=== PATIENT | male | born 1950 | race Caucasian/White ===

== ENCOUNTER 2018-12-03 09:49 | Emergency (ER) | payer BC ==
[2018-12-03 10:20] VITALS: BP 147/64
--- NOTE | 2018-12-03 10:37 | EDM.PDOC ---
ED HPI GENERAL MEDICAL PROBLEM - General Chief Complaint: Abdominal Pain Stated Complaint: abdominal pain Time Seen by Provider: 12/03/18 10:20 Source of Information: Reports: Patient History Limitations: Reports: No Limitations - History of Present Illness INITIAL COMMENTS - FREE TEXT/NARRATIVE: Patient comes into the emergency department with complaint of abdominal pain. He also is complaining of feeling weak related to possible anemia. He states that he has had a history of anemia in the past he has not had his labs checked recently. He does have history of Crohn's as well. He states that his abdominal discomfort does feel like a Crohn's flareup possibly but also feels like it could be something else. He states that the discomfort is generalized lower across the abdomen. Describes as a dull sensation and hurts to touch. He states she's had normal bowel movements has noticed his stools have been darker. He states that the discomfort does feel better when he eats or when he is lying down. He has not taken any medications to help with the discomfort or pain. He denies any chest pain, shortness of breath, urinary concerns, swelling, or nausea and vomiting. Onset: Gradual Quality: Reports: Dull, Throbbing Severity: Mild Improves with: Reports: Eating Worsens with: Reports: None Associated Symptoms: Reports: No Other Symptoms Abdomen Pain Score (Numeric/FACES): 3 - Related Data Allergies Allergy/AdvReac Type Severity Reaction Status Date / Time cephalexin Allergy Headache Verified 12/03/18 10:15 hayfever Allergy Other Uncoded 12/03/18 10:15 Home Meds: Home Meds Albuterol/Ipratropium [Combivent] 1 puff INH Q4H PRN 04/07/14 [History] Aspirin [Halfprin] 81 mg PO DAILY 04/07/14 [History] Fluticasone Propionate [Flonase] 2 spray NS DAILY 04/07/14 [History] Ketorolac [Toradol] 10 mg PO Q6H PRN #40 tab 04/07/14 [Rx] Lansoprazole [Prevacid] 30 mg PO DAILY 04/07/14 [History] Valsartan [Diovan] 320 mg PO DAILY 04/07/14 [History] amLODIPine [Norvasc] 5 mg PO DAILY 04/07/14 [History] Fluticasone/Salmeterol [Advair 250-50 Diskus] 1 puff PO DAILY 07/27/16 [History] Iron Ps Cmplx/Vit B12/Fa [Polysaccharide Iron Forte] 2 each PO DAILY 07/27/16 [ History] Rosuvastatin [Crestor] 10 mg PO Q2D 07/27/16 [History] Tadalafil [Cialis] 20 mg PO DAILY PRN 07/27/16 [History] Past Medical History HEENT History: Reports: Allergic Rhinitis Cardiovascular History: Reports: High Cholesterol, Hypertension Respiratory History: Reports: COPD, Sleep Apnea Gastrointestinal History: Reports: GERD, Other (See Below) Other Gastrointestinal History: Chrohns Genitourinary History: Reports: None Musculoskeletal History: Reports: Osteoarthritis Other Musculoskeletal History: Right wrist tendonitis Neurological History: Reports: None Psychiatric History: Reports: None Endocrine/Metabolic History: Reports: None Hematologic History: Reports: Anemia Immunologic History: Reports: None Oncologic (Cancer) History: Reports: Basal Cell Carcinoma Dermatologic History: Reports: None - Past Surgical History Head Surgeries/Procedures: Reports: None GI Surgical History: Reports: Colonoscopy, EGD, Hernia, Inguinal Neurological Surgical History: Reports: None Musculoskeletal Surgical History: Reports: Carpal Tunnel, Shoulder Surgery Social & Family History - Tobacco Use Smoking Status *Q: Never Smoker ED ROS GENERAL - Review of Systems Review Of Systems: See Below Constitutional: Reports: Malaise, Fatigue HEENT: Reports: No Symptoms Respiratory: Reports: No Symptoms Cardiovascular: Reports: No Symptoms Endocrine: Reports: No Symptoms GI/Abdominal: Reports: Abdominal Pain, Anorexia, Decreased Appetite : Reports: No Symptoms Musculoskeletal: Reports: No Symptoms Skin: Reports: No Symptoms Neurological: Reports: No Symptoms Psychiatric: Reports: No Symptoms Hematologic/Lymphatic: Reports: Anemia Immunologic: Reports: No Symptoms ED EXAM, GENERAL - Physical Exam Exam: See Below Exam Limited By: No Limitations General Appearance: Alert, WD/WN, No Apparent Distress Head: Atraumatic, Normocephalic Neck: Normal Inspection, Supple, Non-Tender, Full Range of Motion Respiratory/Chest: No Respiratory Distress, Lungs Clear, Normal Breath Sounds, No Accessory Muscle Use, Chest Non-Tender Cardiovascular: Normal Peripheral Pulses, Regular Rate, Rhythm, No Edema, No Murmur GI/Abdominal: Tender, Abnormal Bowel Sounds. No: Guarding, Rigid, Hernia, Mass , Hepatomegaly Back Exam: Normal Inspection, Full Range of Motion Extremities: Normal Inspection, Normal Range of Motion, Normal Capillary Refill Neurological: Alert, Oriented Psychiatric: Normal Affect, Normal Mood Skin Exam: Warm, Dry, Intact, Normal Color Course - Vital Signs Last Recorded V/S: Last Vital Signs Temp 37.3 C 12/03/18 10:15 Pulse 61 12/03/18 10:15 Resp 16 12/03/18 10:15 BP 147/64 H 12/03/18 10:15 Pulse Ox 96 12/03/18 10:15 - Orders/Labs/Meds Orders: Active Orders 24 hr Category Date Time Status Peripheral IV Insertion Adult [OM.PC] Stat Oth 12/03/18 10:31 Ordered Labs: Laboratory Tests 12/03/18 12/03/18 12/03/18 Range/Units 10:40 10:40 10:50 WBC 4.5 (4.0-10.0) x10^3/uL RBC 3.73 L (4.5-6.0) x10^6/uL Hgb 9.0 L D (14.0-18.0) g/dL Hct 30.5 L (40.0-52.0) % MCV 81.8 (78.0-93.0) fL MCH 24.1 L (26.0-32.0) pg MCHC 29.5 L (32.0-36.0) g/dL RDW Coeff of Jaret (10.0-15.0) % Plt Count 261 (130-400) x10^3/uL Add Manual Diff Yes Neutrophils % (Manual) 64 (50-80) % Band Neutrophils % 2 (0-6) % Lymphocytes % (Manual) 20 L (25-50) % Monocytes % (Manual) 9 (2-11) % Eosinophils % (Manual) 5 H (0-4) % Vacuolated Monocytes Rare Platelet Estimate Adequate Giant Platelets Rare H Polychromasia Rare Hypochromasia 2+ moderate H Anisocytosis 4+ H Target Cells 1+ slight H Ovalocytes 2+ moderate H Acanthocytes (Spur) 2+ moderate H Schistocytes Rare Sodium 139 (136-145) mmol/L Potassium 4.4 (3.5-5.1) mmol/L Chloride 107 (98-107) mmol/L Carbon Dioxide 24 (21-32) mmol/L Anion Gap 12.4 (10-20) mmol/L BUN 15 (7-18) mg/dL Creatinine 0.9 (0.70-1.30) mg/dL Est Cr Clr Drug Dosing 68.52 mL/min Estimated GFR (MDRD) > 60 Glucose 101 (74-106) mg/dL Calcium 8.7 (8.5-10.1) mg/dL Corrected Calcium 9.18 (8.5-10.1) mg/dL Total Bilirubin 0.3 (0.2-1.0) mg/dL AST 22 (15-37) U/L ALT 27 (16-63) U/L Alkaline Phosphatase 56 (46-116) U/L Total Protein 6.3 L (6.4-8.2) g/dL Albumin 3.4 (3.4-5.0) g/dL Globulin 2.9 Albumin/Globulin Ratio 1.17 Stool Occult Blood Positive H (NEGATIVE) Meds: Medications Discontinued Medications Generic Name Dose Route Start Last Admin Trade Name Freq PRN Reason Stop Dose Admin Sodium Chloride 1,000 mls @ 1,000 mls/hr 12/03/18 10:31 12/03/18 10:44 Normal Saline IV 12/03/18 11:30 1,000 mls/hr ONETIME ONE Administration Sodium Chloride 10 ml 12/03/18 10:31 12/03/18 10:45 Saline Flush FLUSH 10 ml ASDIRECTED PRN Administration Keep Vein Open Departure - Departure Time of Disposition: 12:00 Disposition: Home, Self-Care 01 Condition: Good Clinical Impression: Chronic anemia Abdominal pain Qualifiers: Abdominal location: generalized Qualified Code(s): R10.84 - Generalized abdominal pain GI bleeding Qualifiers: GI bleed type/associated pathology: unspecified gastrointestinal hemorrhage type Qualified Code(s): K92.2 - Gastrointestinal hemorrhage, unspecified - Discharge Information *PRESCRIPTION DRUG MONITORING PROGRAM REVIEWED*: Not Applicable *COPY OF PRESCRIPTION DRUG MONITORING REPORT IN PATIENT BIRGIT: Not Applicable Instructions: Abdominal Pain, Adult, [id number], Acute Pain, Adult, Lower Gastrointestinal Bleeding Referrals: Heber Gonzalez MD [Primary Care Provider] - Forms: ED Department Discharge Additional Instructions: 1. rest 2. continue with your current medications regiment until evaluated from Gastrointestinal doctor 3. activity and diet as tolerated 4. Call with any questions or concerns - My Orders Last 24 Hours: My Active Orders 12/03/18 10:31 Peripheral IV Insertion Adult [OM.PC] Stat - Assessment/Plan Last 24 Hours: My Active Orders 12/03/18 10:31 Peripheral IV Insertion Adult [OM.PC] Stat Assessment:: 1. abdominal pain 2. Microcytic anemia 3. Chronic anemia 4. Chronic bleed Plan: 1. bedside stool occult completed 2. Labs completed in ER 3. CT completed in ER 4. IV started and fluids given 5. Results discussed with the patient and spouse. Records reviewed from [facility]. Pt does have an appointment on 12/12 with gastroenterology for further evaluation and studies. It is advisable for the patient to continue with his current medication regiment until evaluation from gastroenterology. 6. Education provided regarding worsening symptoms and follow up care 7. All questions and concerns addressed prior to discharge
[2018-12-03] MEDS: Sodium Chloride 0.9% 1,000 ML IV ONE (10:44)
[2018-12-03] MEDS: Sodium Chloride 0.9% 10 ML Syringe FLUSH PRN (10:45)
[2018-12-03 11:12] LABS: CHLORIDE,CL 107 mmol/L (98-107); SODIUM,NA 139 mmol/L (136-145)
[2018-12-03 11:20] LABS: ANION GAP 12.4 mmol/L (10-20)
--- NOTE | 2018-12-03 11:31 | CT ---
[id number] CT/CT Abdomen Pelvis WO IV EXAM: ABDOMEN AND PELVIS CT WITHOUT CONTRAST INDICATION: Abdominal pain. COMPARISON: None. 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 Mild prostatomegaly. Lobular fluid densities in the left renal hilum, favor parapelvic cysts over collecting system dilation. The largest cyst is about 31 x 51 mm. A subcentimeter hypodensity in the right lobe of the liver is too small to further characterize, but of doubtful clinical significance. The gallbladder, pancreas, spleen, adrenal glands, right kidney, small bowel, large bowel and appendix are normal in appearance. No adenopathy, free air or free fluid. Degenerative changes in the spine. Grade 1 degenerative L4-L5 spondylolisthesis. The osseous structures are otherwise unremarkable. IMPRESSION: 1. Small fat-containing left inguinal, left Spigelian and umbilical hernias. 2. No acute findings. Kevin Gomez MD 12/03/18 [id number] Thank you for allowing us to participate in the care of your patient.
== END 2018-12-03 11:55 | disposition home or self-care (01) ==
LOC: VM.ED 09:49
DX: K92.2 Gastrointestinal hemorrhage, unspecified (principal); D50.9 Iron deficiency anemia, unspecified; I10 Essential (primary) hypertension; J44.9 Chronic obstructive pulmonary disease, unspecified; Z88.1 Allergy status to other antibiotic agents; Z79.82 Long term (current) use of aspirin; Z79.899 Other long term (current) drug therapy
CPT/HCPCS: 74176; 80053; 85025; 96360; 99284; G0328; J7030

== ENCOUNTER 2024-01-05 08:49 | Emergency (ER) | payer BC ==
[2024-01-05 09:02] VITALS: BP 147/66; PULSE 55
[2024-01-05] MEDS ORDERED: Sodium Chloride 0.9% 10 ML Syringe FLUSH PRN (09:07)
[2024-01-05 09:20] LABS: BASOPHILS PERCENT AUTO 0.6 % (0.2-1.2); EOSINOPHILS ABSOLUTE AUTO 0.3 x10^3/uL (0.0-0.5); EOSINOPHILS PERCENT AUTO 5.1 % (0.0-4.0); HEMATOCRIT 40.7 % (40.0-52.0); HEMOGLOBIN 14.1 g/dL (14.0-18.0); LYMPHOCYTES ABSOLUTE AUTO 1.1 x10^3/uL (1.0-4.8); LYMPHOCYTES PERCENT AUTO 21.9 % (25.0-50.0); MEAN CORPUSCULAR HEMOGLOBIN 32.4 pg (26.0-32.0); MEAN CORPUSCULAR HGB CONC 34.6 g/dL (32.0-36.0); MEAN CORPUSCULAR VOLUME 93.6 fL (78.0-93.0); MONOCYTES ABSOLUTE AUTO 0.4 x10^3/uL (0.0-0.8); MONOCYTES PERCENT AUTO 8.6 % (2.0-11.0); NEUTROPHILS ABSOLUTE AUTO 3.3 x10^3/uL (1.8-7.7); NEUTROPHILS PERCENT AUTO 63.8 % (50.0-80.0); PLATELET COUNT,PLT 196 x10^3/uL (130-400); RED BLOOD CELL COUNT 4.35 x10^6/uL (4.5-6.0); WHITE BLOOD CELL COUNT,WBC 5.1 x10^3/uL (4.0-10.0)
[2024-01-05 09:36] LABS: PROTHROMBIN TIME 9.8 SEC (8.9-11.5)
[2024-01-05 09:43] LABS: A/G RATIO 1.08; ALANINE AMINOTRANSFERASE,ALT 22 U/L (16-63); ALBUMIN 3.9 g/dL (3.4-5.0); ALKALINE PHOSPHATASE 60 U/L (46-116); ANION GAP 14.4 mmol/L (5-15); ASPARTATE AMNIOTRANSFERASE,AST 20 U/L (15-37); BILIRUBIN TOTAL 0.6 mg/dL (0.2-1.0); BLOOD UREA NITROGEN,BUN 22 mg/dL (7-18); CALCIUM 8.9 mg/dL (8.5-10.1); CARBON DIOXIDE,CO2 26 mmol/L (21-32); CHLORIDE,CL 106 mmol/L (98-107); CREATININE 0.9 mg/dL (0.70-1.30); ESTIMATED GFR 91 mL/min (>=60); GLUCOSE RANDOM 131 mg/dL (70-99); POTASSIUM,K 4.4 mmol/L (3.5-5.1); PROTEIN TOTAL,TP 7.5 g/dL (6.4-8.2); SODIUM,NA 142 mmol/L (136-145)
[2024-01-05] MEDS: Prochlorperazine 10 MG/2 ML SDV IV ONE (10:08)
[2024-01-05] MEDS: Ketorolac 15 MG/ML SDV IVPUSH ONE (10:10)
[2024-01-05] MEDS: diphenhydrAMINE 50 MG/ML SDV IVPUSH ONE (10:12)
== END 2024-01-05 11:06 | disposition home or self-care (01) ==
LOC: VM.ED 08:49
DX: G43.909 Migraine, unspecified, not intractable, without status migrainosus (principal); R42 Dizziness and giddiness; I10 Essential (primary) hypertension; E78.00 Pure hypercholesterolemia, unspecified; J44.9 Chronic obstructive pulmonary disease, unspecified; Z88.8 Allergy status to other drugs, medicaments and biological substances; Z91.048 Other nonmedicinal substance allergy status; Z79.82 Long term (current) use of aspirin; Z79.51 Long term (current) use of inhaled steroids; Z79.899 Other long term (current) drug therapy
CPT/HCPCS: 70450; 71045; 80053; 83735; 84484; 85025; 85610; 93005; 93010; 96374; 96375; 99284; 99285-25; J0780; J1200; J1885

== ENCOUNTER 2025-08-06 07:29 | Emergency (ER) | payer BC ==
[2025-08-06] MEDS ORDERED: Sodium Chloride 0.9% 10 ML Syringe FLUSH PRN (07:58)
[2025-08-06 08:12] LABS: BASOPHILS ABSOLUTE AUTO 0.0 x10^3/uL (0.0-0.2); BASOPHILS PERCENT AUTO 0.6 % (0.2-1.2); EOSINOPHILS ABSOLUTE AUTO 0.2 x10^3/uL (0.0-0.5); EOSINOPHILS PERCENT AUTO 3.3 % (0.0-4.0); IMMATURE GRAN ABSOLUTE AUTO 0.00 x10^3/uL (0.00-0.07); IMMATURE GRAN PERCENT AUTO 0.00 % (0.00-0.43); LYMPHOCYTES ABSOLUTE AUTO 1.5 x10^3/uL (1.0-4.8); LYMPHOCYTES PERCENT AUTO 23.1 % (25.0-50.0); MONOCYTES ABSOLUTE AUTO 0.6 x10^3/uL (0.0-0.8); MONOCYTES PERCENT AUTO 9.8 % (2.0-11.0); NEUTROPHILS ABSOLUTE AUTO 4.0 x10^3/uL (1.8-7.7); NEUTROPHILS PERCENT AUTO 63.2 % (50.0-80.0); PLATELET COUNT,PLT 210 x10^3/uL (130-400); RED BLOOD CELL COUNT 3.80 x10^6/uL (4.5-6.0); WHITE BLOOD CELL COUNT,WBC 6.4 x10^3/uL (4.0-10.0)
[2025-08-06 08:34] LABS: A/G RATIO 1.06; ALANINE AMINOTRANSFERASE,ALT 29 U/L (16-63); ASPARTATE AMNIOTRANSFERASE,AST 20 U/L (15-37); BILIRUBIN TOTAL 0.6 mg/dL (0.2-1.0); BLOOD UREA NITROGEN,BUN 22 mg/dL (7-18); CARBON DIOXIDE,CO2 30 mmol/L (21-32); CHLORIDE,CL 105 mmol/L (98-107); CREATININE 1.1 mg/dL (0.70-1.30); EST CRCL DRUG DOSING (CG) 50.83 mL/min; GLUCOSE RANDOM 101 mg/dL (70-99); POTASSIUM,K 4.1 mmol/L (3.5-5.1); PROTEIN TOTAL,TP 7.2 g/dL (6.4-8.2); SODIUM,NA 141 mmol/L (136-145)
[2025-08-06 08:41] LABS: ESTIMATED GFR 71 mL/min (>=60)
[2025-08-06 08:45] LABS: APPEARANCE,URINE CLEAR (CLEAR); GLUCOSE,URINE NEGATIVE (NEGATIVE); OCCULT BLOOD,URINE NEGATIVE (NEGATIVE)
[2025-08-06] MEDS: Iopamidol 612 MG/ML 100 ML Bottle IVPUSH ONE (09:25)
[2025-08-06 10:57] VITALS: BP 151/72; PULSE 60
== END 2025-08-06 10:25 | disposition home or self-care (01) ==
LOC: SUPCPDRO 07:29 → VM.ED 07:29
DX: R10.9 Unspecified abdominal pain (principal); I10 Essential (primary) hypertension; K21.9 Gastro-esophageal reflux disease without esophagitis; M19.90 Unspecified osteoarthritis, unspecified site; E78.00 Pure hypercholesterolemia, unspecified; Z88.8 Allergy status to other drugs, medicaments and biological substances; Z91.09 Other allergy status, other than to drugs and biological substances; Z79.82 Long term (current) use of aspirin; Z79.899 Other long term (current) drug therapy
CPT/HCPCS: 36415; 74177; 80053; 81003; 83690; 85025; 86140; 99284; Q9967